=== PATIENT | female | born 1995 | race American Indian/Alaskan Native ===

== ENCOUNTER 2016-07-05 21:00 | Inpatient (IN) | payer MEDICAID ==
[2016-07-05] MEDS ORDERED: CERVIDIL VG ONE (22:46)
[2016-07-05] MEDS ORDERED: LACTATED RINGERS 1,000 ML ONE (22:48)
[2016-07-05 22:52] LABS: Hematocrit 35.7 % (30.3-42.9); Hemoglobin 11.9 gm/dl (10.1-14.3); Mean Corpuscular HGB Conc 34 % (30-34); Mean Corpuscular Hemoglobin 30 pg (28-32); Mean Corpuscular Volume 90 fl (79-97); Platelet Count 156 K/mm3 (140-440); Red Blood Count 3.95 M/mm3 (3.65-5.03); Red Cell Distribution Width 14.5 % (13.2-15.2); White Blood Count 6.3 K/mm3 (4.5-11.0)
[2016-07-05] MEDS ORDERED: SUBLIMAZE IV PRN (23:24)
[2016-07-05] MEDS ORDERED: MINERAL OIL PO PRN (23:24)
[2016-07-05] MEDS ORDERED: BRETHINE SUB-Q PRN (23:24)
[2016-07-05] MEDS ORDERED: POLYCILLIN/NS 2 GM/100 ML 2 GM/100 ML BAG IV ONE (23:24)
[2016-07-05] MEDS ORDERED: XYLOCAINE 2% INFILTRATI ONE (23:24)
[2016-07-05] MEDS ORDERED: ZOFRAN IV PRN (23:24)
[2016-07-05] MEDS ORDERED: BRETHINE IVP PRN (23:24)
[2016-07-05] MEDS ORDERED: ePHEDrine SULFATE IV PRN (23:24)
[2016-07-05] MEDS: LACTATED RINGERS 1,000 ML IV SCH (23:37)
[2016-07-05] MEDS ORDERED: PITOCin/NS 20 UNIT/1000ML DRIP 20 UNITS/1,000 ML BAG IV SCH (23:45)
--- NOTE | 2016-07-06 00:02 | History and Physical Report ---
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-pellet removed from the leg Abnormal PAP: negative ROOSEVELT Exposure: negative Infertility: negative Uterine Anomaly: negative Uterine Surgery (not C/S): negative Other Gynecologic Problems: negative Medical History Comments: neg Family Hx: DM HTN Social Hx: no e/t/d single Infection History Hx of STD: none Varicella/Chicken Pox Status: Immunized Genetic History Congenital Heart Defect: Mom: no Dad: no Lena Disease: Mom: no Dad: no Thalassemia Mom: no Dad: no Neural Tube Defect Mom: no Dad: no Down's Syndrome Mom: no Dad: no Norman-Sachs Mom: no Dad: no Sickle Cell Disease/Trait Mom: no Dad: no Hemophilia Mom: no Dad: no Muscular Dystrophy Mom: no Dad: no Cystic Fibrosis Mom: no Dad: no Veronica Chorea Mom: no Dad: no Mental Retardation Mom: no Dad: no Fragile X Mom: no Dad: no Other Genetic/Chromosomal Disorder Mom: yes Dad: no Comments: brother. Child w/other defect Mom: no Dad: no Enviromental Exposures Xray Exposure: no Medication, drug, or alcohol use since LMP: no Chemical/Other Exposure: no Exposure to Cat Liter: no Hx of Parvovirus (Fifth Disease): no Occupational Exposure to Children: none Active Medications (reviewed today): TERAZOL 3 0.8 % CREA (TERCONAZOLE) Insert 1 applicatorful intravaginally at bedtime for 3 consecutive days. FLAGYL 500 MG TABS (METRONIDAZOLE) 1 tab po bid PLUS 27-1 MG TABS ( VIT-FE FUMARATE-FA) 1 po q day 19 TABS ( VIT-DSS-FE FUM-FA TABS) 1 tab q d Current Allergies (reviewed today): No known allergies Laboratory Results Date/Time Collected: 01/20/2016 Routine Urinalysis Protein: Negative Glucose: Negative Urine HCG: positive PHYSICAL EXAM HEENT: PERRLA, normal conjunctiva, external nose and nasal mucosa normal, oropharynx clear Neck/Thyroid: supple, thyroid normal Skin no significant abnormal lesions or rashes Chest: respiratory effort normal, clear to auscultation Breasts: normal without skin changes or masses CV: regular, normal S1-S2, no murmur, no rub, no gallop Abdomen: normal bowel sounds, soft, nontender, no HSM Musculoskeletal: grossly normal ROM in joints, no joint tenderness or muscle weakness Neuro: grossly normal DTRs, sensation, strength, cranial nerves Extremities: no clubbing, cyanosis, or edema [employer] Exams Vulva/Vagina: No lesions, normal BUS, normal rugae Cervix: No lesions; no cervical motion tenderness Uterus: normal size and position, midline, mobile Adnexae: no masses or tenderness Rectovaginal: no masses or tenderness Past History - Obstetrical History Expected Date of Delivery: 06/25/16 Actual Gestation: 41 Week(s) 3 Day(s) : 1 Para: 0 Number of Living Children: 0 Medications and Allergies Allergies Allergy/AdvReac Type Severity Reaction Status Date / Time No Known Allergies Allergy Unverified 07/05/16 22:34 Active Meds: Active Medications Fentanyl (Sublimaze) 100 mcg IV Q2H PRN PRN Reason: Labor Pain Ampicillin Sodium (Polycillin/Ns 1 Gm/50 Ml) 1 gm in 50 mls @ 100 mls/hr IV Q4HR DEE DEE PRN Reason: Protocol Ampicillin Sodium (Polycillin/Ns 2 Gm/100 Ml) 2 gm in 100 mls @ 100 mls/hr IV ONCE ONE PRN Reason: Protocol Stop: 07/06/16 00:23 Lactated Ringer's (Lactated Ringers) 1,000 mls @ 125 mls/hr IV DIRECT DEE DEE Last Admin: 07/05/16 23:37 Dose: 125 mls/hr Oxytocin/Sodium Chloride (Pitocin/Ns 20 Unit/1000ml Drip) 20 units in 1,000 mls @ 125 mls/hr IV DIRECT DEE DEE Mineral Oil (Mineral Oil) 30 ml PO QHS PRN PRN Reason: Constipation Ondansetron HCl (Zofran) 4 mg IV Q8H PRN PRN Reason: Nausea And Vomiting - Vital Signs Vital signs: Vital Signs Pulse Pulse Ox 94 H 99 07/05/16 21:17 07/05/16 21:17 Temp Pulse Resp BP Pulse Ox 102 H 132/75 97 07/05/16 23:51 07/05/16 21:18 07/05/16 23:51 - Physical Exam Breasts: Positive: deferred Cardiovascular: Regular rate, Normal S1, Normal S2 Lungs: Positive: Normal air movement Abdomen: Positive: normal appearance, soft, normal bowel sounds. Negative: distention, tenderness Genitourinary (Female): Positive: normal perenium Vulva: both: normal Vagina: Positive: normal moisture. Negative: discharge Cervix: Negative: lesion, discharge Uterus: Positive: normal size, normal contour Adnexa: both: normal Anus/Rectum: Positive: normal perianal skin, heme negative. Negative: rectal mass, hemorrhoids Extremities: Positive: normal Deep Tendon Reflex Grade: Normal +2 - Obstetrical FHR: category 1 Uterine Contraction Monitor Mode: External Cervical Dilatation: 1 (per RN) Cervical Effacement Percentage: 60 station: -3 Uterine Contraction Pattern: Irregular Uterine Tone Measurement Phase: Resting Uterine Contraction Intensity: Mild Results Result Diagrams: 07/05/16 22:29 All other labs normal. Laboratory Data-Patient Name: BUTCH GREG Test Date Result Blood Type 01/26/2016 A Rh 01/26/2016 Positive Antibody Screen negative Rubella 01/26/2016 IMMUNE Serology (RPR) 01/26/2016 NR HBsAg 01/26/2016 Negative Hemoglobin 04/01/2016 11.1 Hematocrit 04/01/2016 33.7 Platelets 01/26/2016 207 [id number] Chlamydia DNA 01/22/2016 Negative GC DNA/Culture 01/22/2016 Urine Culture Group B Strep cult positive PAP HIV 01/26/2016 Negative AFP/Quad Screen 01/26/2016 Glucola Test 3hr GTT (Fasting) 06/01/2016 94 1 hr 06/01/2016 172 2 hr 06/01/2016 158 3 hr 06/01/2016 131 OPTIONAL LABS-Patient Name:BUTCH GREG Test Date Result Varicella Ab Sickle Cell 01/26/2016 Negative PPD Fibronectin Cystic Fibrosis Parvovirus TSH Free T4 Hepatitis C ALT AST Uric Acid Creatinine 24 hr Urine Protein DAJUAN Assessment and Plan 20yo @ 41 weeks here for IOL GBS + will start Ampicillin when in active labor Cervidil ordered All orders in EMR. Pt and partner made aware of induction process and that it may take 2+ days. All questions addressed.
[2016-07-06] MEDS ORDERED: AMBIEN PO PRN (00:11)
[2016-07-06] MEDS ORDERED: POLYCILLIN/NS 1 GM/50 ML 1 GM/50 ML BAG IV SCH (03:26)
[2016-07-06] MEDS ORDERED: ePHEDrine SULFATE ONE (03:54)
[2016-07-06] MEDS ORDERED: NACL 0.9% IR ONE (04:10)
[2016-07-06] MEDS ORDERED: WATER FOR IRRIG STERILE IR ONE (04:10)
[2016-07-06] MEDS ORDERED: POLYCILLIN/NS 2 GM/100 ML 2 GM/100 ML BAG IV ONE (04:11)
--- NOTE | 2016-07-06 04:30 | Progress Note ---
Assessment and Plan Received call from RN caring for pt @ 0300 to report deep variable decel slow to recover Cervidil removed Received second call @ 0330 of second deep decel Instructed to get epidural Called she is enroute. Terb if ctx are still regular. Now SVE 1-2 long -4 Dr Patel called section Explained situation to pt and partner Dr. Santos notified. Consents signed. 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-pellet removed from the leg Abnormal PAP: negative ROOSEVELT Exposure: negative Infertility: negative Uterine Anomaly: negative Uterine Surgery (not C/S): negative Other Gynecologic Problems: negative Medical History Comments: neg Family Hx: DM HTN Social Hx: no e/t/d single Infection History Hx of STD: none Varicella/Chicken Pox Status: Immunized Genetic History Congenital Heart Defect: Mom: no Dad: no Lena Disease: Mom: no Dad: no Thalassemia Mom: no Dad: no Neural Tube Defect Mom: no Dad: no Down's Syndrome Mom: no Dad: no Norman-Sachs Mom: no Dad: no Sickle Cell Disease/Trait Mom: no Dad: no Hemophilia Mom: no Dad: no Muscular Dystrophy Mom: no Dad: no Cystic Fibrosis Mom: no Dad: no Winn Chorea Mom: no Dad: no Mental Retardation Mom: no Dad: no Fragile X Mom: no Dad: no Other Genetic/Chromosomal Disorder Mom: yes Dad: no Comments: brother. Child w/other defect Mom: no Dad: no Enviromental Exposures Xray Exposure: no Medication, drug, or alcohol use since LMP: no Chemical/Other Exposure: no Exposure to Cat Liter: no Hx of Parvovirus (Fifth Disease): no Occupational Exposure to Children: none Active Medications (reviewed today): TERAZOL 3 0.8 % CREA (TERCONAZOLE) Insert 1 applicatorful intravaginally at bedtime for 3 consecutive days. FLAGYL 500 MG TABS (METRONIDAZOLE) 1 tab po bid PLUS 27-1 MG TABS ( VIT-FE FUMARATE-FA) 1 po q day 19 TABS ( VIT-DSS-FE FUM-FA TABS) 1 tab q d Current Allergies (reviewed today): No known allergies Laboratory Results Date/Time Collected: 01/20/2016 Routine Urinalysis Protein: Negative Glucose: Negative Urine HCG: positive PHYSICAL EXAM HEENT: PERRLA, normal conjunctiva, external nose and nasal mucosa normal, oropharynx clear Neck/Thyroid: supple, thyroid normal Skin no significant abnormal lesions or rashes Chest: respiratory effort normal, clear to auscultation Breasts: normal without skin changes or masses CV: regular, normal S1-S2, no murmur, no rub, no gallop Abdomen: normal bowel sounds, soft, nontender, no HSM Musculoskeletal: grossly normal ROM in joints, no joint tenderness or muscle weakness Neuro: grossly normal DTRs, sensation, strength, cranial nerves Extremities: no clubbing, cyanosis, or edema G[employer] P[employer] Exams Vulva/Vagina: No lesions, normal BUS, normal rugae Cervix: No lesions; no cervical motion tenderness Uterus: normal size and position, midline, mobile Adnexae: no masses or tenderness Rectovaginal: no masses or tenderness Patient reports: movement normal, contractions Objective - Vital Signs Vital Signs: Vital Signs - 12hr 07/05/16 07/05/16 07/05/16 21:17 21:18 21:23 Pulse Rate 94 H 85 90 Blood Pressure 132/75 O2 Sat by Pulse 99 98 Oximetry 07/05/16 07/05/16 07/05/16 21:28 21:33 21:38 Pulse Rate 90 92 H 95 H Blood Pressure O2 Sat by Pulse 97 97 98 Oximetry 07/05/16 07/05/16 07/05/16 21:43 21:48 21:53 Pulse Rate 98 H 94 H 104 H Blood Pressure O2 Sat by Pulse 98 98 98 Oximetry 07/05/16 07/05/16 07/05/16 21:58 22:03 22:46 Pulse Rate 91 H 89 87 Blood Pressure O2 Sat by Pulse 98 98 99 Oximetry 07/05/16 07/05/16 07/05/16 22:51 22:56 23:01 Pulse Rate 91 H 91 H 88 Blood Pressure O2 Sat by Pulse 98 98 98 Oximetry 07/05/16 07/05/16 07/05/16 23:06 23:11 23:16 Pulse Rate 96 H 89 95 H Blood Pressure O2 Sat by Pulse 98 98 97 Oximetry 07/05/16 07/05/16 07/05/16 23:18 23:21 23:26 Pulse Rate 70 103 H 89 Blood Pressure O2 Sat by Pulse 89 97 99 Oximetry 07/05/16 07/05/16 07/05/16 23:31 23:36 23:41 Pulse Rate 93 H 87 83 Blood Pressure O2 Sat by Pulse 98 98 98 Oximetry 07/05/16 07/05/16 07/05/16 23:46 23:51 23:56 Pulse Rate 84 102 H 110 H Blood Pressure O2 Sat by Pulse 98 97 98 Oximetry 07/06/16 07/06/16 07/06/16 00:01 00:06 00:11 Pulse Rate 116 H 102 H 119 H Blood Pressure O2 Sat by Pulse 98 97 98 Oximetry 07/06/16 07/06/16 07/06/16 00:16 00:21 00:26 Pulse Rate 91 H 94 H 91 H Blood Pressure O2 Sat by Pulse 97 97 97 Oximetry 07/06/16 07/06/16 07/06/16 00:30 00:36 00:41 Pulse Rate 96 H 94 H 88 Blood Pressure O2 Sat by Pulse 97 98 97 Oximetry 07/06/16 07/06/16 07/06/16 00:46 00:53 00:58 Pulse Rate 94 H 83 93 H Blood Pressure O2 Sat by Pulse 97 96 96 Oximetry 07/06/16 07/06/16 07/06/16 01:03 01:08 01:13 Pulse Rate 85 94 H 93 H Blood Pressure O2 Sat by Pulse 97 97 98 Oximetry 07/06/16 07/06/16 07/06/16 01:18 01:23 01:28 Pulse Rate 97 H 93 H 95 H Blood Pressure O2 Sat by Pulse 97 95 95 Oximetry 07/06/16 07/06/16 07/06/16 01:33 01:38 01:43 Pulse Rate 106 H 102 H 101 H Blood Pressure O2 Sat by Pulse 95 98 96 Oximetry 07/06/16 07/06/16 07/06/16 01:48 02:06 02:07 Pulse Rate 101 H 86 97 H Blood Pressure O2 Sat by Pulse 97 100 93 Oximetry 07/06/16 07/06/1617 03:02 03:07 03:12 Pulse Rate 87 84 77 Blood Pressure O2 Sat by Pulse 98 100 100 Oximetry 07/06/16 07/06/16 07/06/16 03:17 03:22 03:27 Pulse Rate 78 79 82 Blood Pressure O2 Sat by Pulse 100 100 100 Oximetry 07/06/16 07/06/16 07/06/16 03:32 03:38 03:43 Pulse Rate 82 89 93 H Blood Pressure O2 Sat by Pulse 100 97 100 Oximetry 07/06/16 07/06/16 07/06/16 03:48 03:53 03:57 Pulse Rate 82 81 87 Blood Pressure O2 Sat by Pulse 100 99 100 Oximetry 07/06/16 07/06/16 07/06/16 04:03 04:08 04:13 Pulse Rate 90 91 H 92 H Blood Pressure O2 Sat by Pulse 99 98 99 Oximetry 07/06/16 07/06/16 07/06/16 04:17 04:18 04:19 Pulse Rate 91 H 84 89 Blood Pressure 127/76 126/78 O2 Sat by Pulse 99 Oximetry 07/06/16 07/06/16 07/06/16 04:20 04:21 04:22 Pulse Rate 67 111 H 93 H Blood Pressure 137/87 O2 Sat by Pulse 63 L 100 Oximetry - Exam Breasts: deferred Cardiovascular: Regular rate Lungs: Normal air movement Abdomen: Present: normal appearance Uterus: Present: normal FHR: category 2 Uterine Contraction Pattern: Regular Uterine Contraction Intensity: Moderate Extremities: edema Deep Tendon Reflex Grade: Normal +2 - Labs Labs: Laboratory Results - last 24 hr 07/05/16 07/05/16 22:29 22:29 WBC 6.3 RBC 3.95 Hgb 11.9 Hct 35.7 MCV 90 MCH 30 MCHC 34 RDW 14.5 Plt Count 156 Blood Type A POSITIVE Antibody Screen TNR ÁLVARO Antibody Screen Negative
[2016-07-06] MEDS ORDERED: ePHEDrine SULFATE IV PRN (04:35)
[2016-07-06] MEDS ORDERED: NARCAN 2 MG/2 ML IV PRN (04:35)
--- NOTE | 2016-07-06 04:35 | Anesthesia Consultation ---
Anesthesia Consult and Med Hx Date of service: 07/06/16 - Airway Anesthetic Teeth Evaluation: Good ROM Head & Neck: Adequate Mental/Hyoid Distance: Adequate Mallampati Class: Class II Intubation Access Assessment: Good - Pulmonary Exam CTA: Yes - Cardiac Exam Cardiac Exam: No Murmur - Pre-Operative Health Status ASA Pre-Surgery Classification: ASA2 Proposed Anesthetic Plan: Epidural - Pulmonary Hx Asthma: No COPD: No Hx Pneumonia: No - Cardiovascular System Hx Hypertension: No - Central Nervous System Hx Seizures: No Hx Psychiatric Problems: No - Endocrine Hx Renal Disease: No Hx End Stage Renal Disease: No Hx Hypothyroidism: No Hx Hyperthyroidism: No - Hematic Hx Anemia: No Hx Sickle Cell Disease: No - Other Systems Hx Alcohol Use: No
[2016-07-06] MEDS ORDERED: PHENERGAN PR PRN (04:37)
[2016-07-06] MEDS ORDERED: NARCAN 0.4 MG/1 ML IV PRN ×2 (04:37→07:30)
[2016-07-06] MEDS ORDERED: DILAUDID IV PRN ×2 (04:37)
[2016-07-06] MEDS ORDERED: ZOFRAN IV PRN ×2 (04:37→07:30)
[2016-07-06] MEDS ORDERED: PHENERGAN PO PRN (04:37)
[2016-07-06] MEDS ORDERED: REGLAN ONE (04:48)
[2016-07-06] MEDS ORDERED: BICITRA ONE ×2 (04:48→05:02)
[2016-07-06] MEDS ORDERED: PEPCID IV ONE (04:50)
[2016-07-06] MEDS ORDERED: SODIUM CHLORIDE FLUSH SYRINGE 10 ML IV NR (05:00)
[2016-07-06] MEDS ORDERED: fentaNYL-BUPIV 2 MCG/ML-0.125% 200 MCG/100 ML BAG EPIDURAL SCH ×2 (05:00)
[2016-07-06] MEDS ORDERED: ANCEF ONE (05:15)
--- NOTE | 2016-07-06 05:15 | Event Note ---
Date: 07/06/16 Arrived at hospital at 4:20 after stat call to come to hospital for severe decelerations following placement of cervidil cervical ripening agent in post dates (EDC 06/25/16) G1 induction. Pt is 40 wk + 3d with 4/20 u/s = EFW 8#5oz. She failed a 1 hr glucose but her 3 hr was only one abnormal value. A+, Im, GBS pos. Review of strip reveals at least 3 profound and prolonged late decelerations into the sixties with very slow recovery. The cervidil was removed for the second one near 0300 and there waas a repeat episode at 0338 more than 30 min post removal,; there are several other episodes that in retrospect, are difficult to interpret due to poor pick-up of heart rate. There does not appear to have been hyperstimulation. She has now received an epidural. The patient"s contractions have stopped now. Discussed with patient and SO at the bedside. Cervix is very unfavorable and she is remote from delivery. section is indicated at this time for intolerance of labor and distress with several late decelerations with contractions--they expressed understanding.
[2016-07-06] MEDS ORDERED: TORADOL ONE (05:29)
[2016-07-06] MEDS ORDERED: XYLOCAINE MPF 2% ONE ×4 (05:29)
[2016-07-06] MEDS ORDERED: MORPHINE ONE ×2 (05:33)
[2016-07-06 06:04] LABS: ISTAT Base Excess -3; ISTAT HCO3 23.9; ISTAT PCO2 48.8 (35-45); ISTAT PH 7.299 (7.35-7.45); ISTAT PO2 23 (80-105); ISTAT SO2 34; ISTAT TCO2 25
[2016-07-06 06:05] LABS: ISTAT Base Excess -4; ISTAT PCO2 42.3 (35-45); ISTAT PH 7.325 (7.35-7.45); ISTAT PO2 24 (80-105); ISTAT SO2 38; ISTAT TCO2 23
--- NOTE | 2016-07-06 06:17 | Operative Report ---
Operative Report Operative Report: Date of Procedure: 07/06/2016 Procedure name(s): Primary transverse low segment section Pre-operative diagnosis: Primigravida postdates at 40 weeks and 3 days , intolerance of cervical ripening agent, very unfavorable cervix and large Post-operative diagnosis: Same, plus thick meconium and nuchal shoulder cord, otherwise normal tubes, uterus and ovaries. Uterus somewhat boggy off and on during the case responding to uterine massage, Methergine was given postoperatively Surgeon: Yasemin Patel M.D. Data Processing Consultant: Guillermina Gross CNM Anesthesia: Epidural EBL: 800 : 3995 g male (8 lbs. 13 oz.), Apgars 8 and 9. Thick meconium Time of : 0537 Findings Normal tubes, uterus and ovaries, thick meconium shoulder/nuchal cord. Cord gases done and placenta sent to pathology, no evidence of abruption Procedure The patient was taken to the operating room and after adequate anesthesia was obtained she was placed in the supine position in left lateral tilt. Sequential compression devices were in place on both lower extremities and a Katz catheter was placed in a sterile fashion. The abdomen was then prepped and draped in the usual fashion. Surgical time-out was done with the entire OR team attentive. A Pfannenstiel incision was made with a scalpel and sharp dissection was carried down through all layers of the abdomen in the usual fashion. The abdomen was entered bluntly and the lower uterine segment was identified. The presenting part was palpated and a bladder flap was created with the Metzenbaum scissors. The scalpel was used to incise the uterus in a transverse fashion and this incision was extended bluntly with finger traction and the membranes were ruptured and there was thick, old meconium. My hand was inserted into the uterus. The vertex was grasped, rotated to an OA presentation and delivered with a combination of traction and fundal pressure. The cord was clamped and cut and a viable infant was suctioned and handed off to the attending NICU staff and was a 8 lbs. 13 oz. male with Apgars of 8 and 9. The placenta was removed manually, the interior of the uterus was cleansed with moist lap packs and the uterus was exteriorized. The uterine incision was closed with a double imbricating layer of 0 Vicryl suture in a running fashion. Hemostasis was adequate and the uterus was returned to the abdomen. Uterus was well contracted . Initially but subsequently became boggy and this responded to uterine massage. The abdomen was then closed in layers: the rectus muscles were closed with several [id number] sutures of 0 Vicryl, the fascia was closed with running sutures of 0 Vicryl starting at both side corners in turn and tied together in the midline. The subcutaneous tissue was irrigated and then closed with several interrupted sutures of 3-0 Vicryl and the skin was closed with a running subcuticular suture of 4-0 Vicryl. Sponge and Lap count correct X 3, estimated blood loss was 800 mL and the Katz was draining clear urine. The patient tolerated the procedure well and was discharged to PACU in good condition.
[2016-07-06] MEDS ORDERED: METHERGINE IM ONE ×2 (06:26→06:30)
[2016-07-06] MEDS ORDERED: MYLICON PO PRN (07:30)
[2016-07-06] MEDS ORDERED: MORPHINE IV PRN ×2 (07:30)
[2016-07-06] MEDS ORDERED: SODIUM CHLORIDE FLUSH SYRINGE 10 ML IV PRN (07:30)
[2016-07-06] MEDS ORDERED: PITOCin/NS 20 UNIT/1000ML DRIP 20 UNITS/1,000 ML BAG IV SCH (07:30)
[2016-07-06] MEDS ORDERED: MILK OF MAGNESIA PO PRN (07:30)
[2016-07-06] MEDS ORDERED: TUCKS PAD TP PRN (07:30)
[2016-07-06] MEDS ORDERED: TORADOL IV PRN (07:30)
[2016-07-06] MEDS ORDERED: TYLENOL PO PRN (07:30)
[2016-07-06] MEDS ORDERED: D5LR 1,000 ML IV SCH (07:30)
[2016-07-06] MEDS ORDERED: LANSINOH TP PRN (07:30)
--- NOTE | 2016-07-06 09:04 | Admit Criteria Form ---
Admission Criteria Documentation: OBSTETRIC AND GYNECOLOGIC DISEASE GRG Clinical Indications for Admission to Inpatient Care (Place 'X' for any and all applicable criteria): Hospital admission is needed for appropriate care of the patient because of 1 or more of the following (1)(2)(3): [ ]I. Hemodynamic instability, as indicated by 1 or more of the following (1)( 2)(3)(4)(5): [ ]a) Vital signs or other findings not as expected for chronic patient condition or baseline [ ]b) Instability indicated by 1 or more of the following: [ ]i) Hypotension [ ]ii) Symptomatic tachycardia unresponsive to treatment (eg, analgesia, fluids, sedation as indicated) [ ]iii) Inadequate perfusion indicated by 1 or more of the following: [ ]A. Lactic acidosis (greater than 2 mmol/ L) [ ]B. New abnormal capillary refill ( greater than 3 seconds) [ ]C. Reduced urine output [ ]D. New altered mental status [ ]iv) Orthostatic vital sign changes unresponsive to treatment (eg, fluids) [ ]v) Multiple IV fluid boluses required to maintain adequate blood pressure or perfusion [ ]vi) IV inotropic or vasopressor medication required to maintain adequate blood pressure or perfusion [ ]II. Obstetric infection requiring hospitalization indicated by 1 or more of the following(13)(14): [ ]a) Chorioamnionitis [ ]b) Endometritis (except mild endometritis) [ ]c) Pelvic abscess [ ]d) Peritonitis [ ]e) Septic pelvic thrombophlebitis [ ]III. Amniotic fluid or pulmonary embolism(4)(5)(6) [ ]IV. Suspected peritonitis or ectopic requiring monitoring beyond scope of 24 hours or observation care(7)(8) [ ]V. compromise requiring hospitalization indicated by ALL of the following(9)(10): [ ]a) compromise indicated by 1 or more of the following(11): [ ]i) Abnormal heart rate monitoring [ ]ii) Abnormal contraction stress test [ ]iii) Abnormal biophysical profile [ ]iv) Abnormal Doppler flow in vessels (ie, Doppler velocimetry) (12) [ ]b) Persistence of compromise indicators during evaluation and observation monitoring [ ]. Ovarian hyperstimulation syndrome requiring hospitalization[A] indicated by ALL of the following(15): [ ]a) Recent ovarian stimulation with gonadotropins, or evidence on ultrasound of spontaneous emergence of large number of ovarian follicles [ ]b) Evidence of severe ovarian hyperstimulation syndrome indicated by 1 or more of the following: [ ]i) Abdominal pain unresponsive to oral therapy [ ]ii) Acute respiratory distress syndrome [ ]iii) Electrolyte imbalance ( eg, hyponatremia, hyperkalemia) [ ]iv) Elevated liver enzymes [ ]v) Evidence of thromboembolism [ ]vi) Hemoconcentration (hematocrit greater than 45 % (0.45)) [ ]vii) Inability to maintain oral intake adequate to prevent hemoconcentration [ ]viii) Marked hypotension from baseline (eg, SBP 20 mmHg below patients usual pressure) [ ]ix) Oliguria or anuria [ ]x) Ovarian torsion [ ]xi) Pleural or pericardial effusion on x-ray or echocardiogram [ ]xii) Rapid increase in serum creatinine to greater than 1.2 mg/dL (106 micromoles/L) or creatinine clearance less than 50 mL/min/1.73m2 (0.84 mL/ sec/1.73m2) [ ]xiii) Ruptured ovarian cyst with hemorrhage [ ]xiv) Severe abdominal pain or peritoneal signs [ ]xv) Tense ascites that cannot be managed with paracentesis in outpatient setting [ ]VII.Pelvic infection requiring hospitalization indicated by 1 or more of the following (16): [ ]a) Outpatient treatment has failed or is not appropriate (eg, inpatient monitoring required) [ ]b) Pelvic abscess [ ]c) Surgical emergency cannot be excluded (eg, rigid abdomen) [ ]d) Vomiting precluding outpatient and observation care management VIII. loss complications requiring inpatient medical treatment indicated by 1 or more of the following (4)(7)(9): [ ]a) Fever [ ]b) Peritonitis [ ]c) Sepsis [ ]d) Severe abdominal pain [ ]IX. or patient requiring monitoring for severe heart failure, pulmonary disease, or other comorbid condition (eg, peripartum cardiomyopathy) (4)(17) [ ]X. patient with rupture of membranes requiring hospitalization indicated by ANY ONE of the following: [ ]a) Chorioamnionitis, cloudy amniotic fluid, or other evidence of infection [ ]b) compromise or other need for monitoring (11) [ ]c) Gestation longer than 23 weeks and ANY ONE of the following: [ ]i) Abnormal (noncephalic) presentation [ ]ii) Inadequate home environment (eg, home too far from hospital, unable to rapidly return to hospital) [ ]d) Temperature greater than 100.4 degrees F (38 degrees C)( oral) [ ]e) Threatened labor requiring monitoring beyond scope (eg, over 24 hours) of observation Care [ ] XI. complications, including severe lacerations, infections, or retained placenta (19) [ ] XII.Uterine bleeding with high-risk features indicated by ANY ONE of the following (4): [ ]a) Active major hemorrhage (eg, hemorrhage) [ ]b) Coagulopathy with active bleeding [ ]c) Gestational trophoblastic disease (eg, molar ) (20 ) [ ]d) (longer than 23 weeks) and ANY ONE of the following: [ ]i) Pain [ ]ii) Placental abruption, known or suspected [ ]iii) Placenta accrete, known or suspected(21) [ ]iv) Placenta previa, known or suspected [ ]v) Vasa previa [ ]e) Severe anemia [ X]XIII. Obstetric or Gynecologic Disease, condition or symptom for which ANY ONE of the following: [X ]a) Emergency and observation care have failed or are not considered appropriate ( Also use General Criteria: Observation Care Criteria as appropriate) [ ]b) Presence of a General Admission Criteria or Pediatric General Admission Criteria The original [facility] content created by [facility] has been revised. The portions of the content which have been revised are identified through the use of italic text or in bold, and [facility] has neither reviewed nor approved the modified material.All other unmodified content is copyright [facility]. Please see references footnoted in the original [facility] edition 2016 Admission Criteria Met: Yes
[2016-07-06 09:25] LABS: Hematocrit 34.7 % (30.3-42.9); Hemoglobin 11.5 gm/dl (10.1-14.3); Mean Corpuscular HGB Conc 33 % (30-34); Mean Corpuscular Hemoglobin 30 pg (28-32); Mean Corpuscular Volume 90 fl (79-97); Platelet Count 135 K/mm3 (140-440); Red Blood Count 3.86 M/mm3 (3.65-5.03); Red Cell Distribution Width 14.3 % (13.2-15.2); White Blood Count 13.4 K/mm3 (4.5-11.0)
[2016-07-06] MEDS ORDERED: BENADRYL IV NR (09:27)
[2016-07-06] MEDS ORDERED: LACTATED RINGERS 1,000 ML IV SCH ×2 (09:30→11:00)
[2016-07-06] MEDS ORDERED: ANCEF/NS 1 GM/50 ML 1 GM/50 ML BAG IV SCH ×2 (10:00→23:00)
[2016-07-06] MEDS: LACTATED RINGERS 1,000 ML IV SCH (10:42)
--- NOTE | 2016-07-06 10:54 | Event Note ---
Date: 07/06/16 report from Shmuel Carbajal with patient in L&D recovery after C/s that UO was < 30mL over the last hour, 450mL was emptied on immediate arrival to recovery. Urine now dark [place], small amount in tube. Urometer placed and order for LR 500mL bolus given. She was further observed. Urine increased to ~20mL/hr now clear yellow. VSS throughout recovery period, H/H stable. No evidence of bleeding, decreased UO appears to be d/t dehydration, order for another 500mL LR bolus given then 125mL/hr. Patient was informed of plan of care, she alert and appropriately responsive, civil design specialist with patient now to assist with breast feeding.
[2016-07-06] MEDS ORDERED: AFRIN NS PRN (13:30)
[2016-07-06] MEDS: BENADRYL IV PRN ×2 (15:31→23:00)
[2016-07-06] MEDS ORDERED: NUBAIN IV ONE (19:00)
[2016-07-06] MEDS ORDERED: PREPARATION H PR PRN (20:27)
[2016-07-06 22:08] LABS: Hemoglobin 9.8 gm/dl (10.1-14.3)
[2016-07-07] MEDS ORDERED: BOOSTRIX IM ONE (06:00)
--- NOTE | 2016-07-07 06:24 | Progress Note ---
Assessment and Plan - Patient Problems (1) delivery delivered Onset Date: ~07/06/16 Current Visit: Yes Status: Acute Plan to address problem: Pt w/o complaint VSS FF below umb Lochia small Dressing D&I Pt removed her on IV. H&H 12/10 drop related to blood loss from section Pt is asymptomatic Doing well s/p c/s P: continue pathway Adv diet and activity as tolerated. 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): leg surgery-pellet removed from the leg Abnormal PAP: negative [place] Exposure: negative Infertility: negative Uterine Anomaly: negative Uterine Surgery (not C/S): negative Other Gynecologic Problems: negative Medical History Comments: neg Family Hx: DM HTN Social Hx: no e/t/d single Infection History Hx of STD: none Varicella/Chicken Pox Status: Immunized Genetic History Congenital Heart Defect: Mom: no Dad: no Lena Disease: Mom: no Dad: no Thalassemia Mom: no Dad: no Neural Tube Defect Mom: no Dad: no Down's Syndrome Mom: no Dad: no Norman-Sachs Mom: no Dad: no Sickle Cell Disease/Trait Mom: no Dad: no Hemophilia Mom: no Dad: no Muscular Dystrophy Mom: no Dad: no Cystic Fibrosis Mom: no Dad: no [place] Chorea Mom: no Dad: no Mental Retardation Mom: no Dad: no Fragile X Mom: no Dad: no Other Genetic/Chromosomal Disorder Mom: yes Dad: no Comments: brother. Child w/other defect Mom: no Dad: no Enviromental Exposures Xray Exposure: no Medication, drug, or alcohol use since LMP: no Chemical/Other Exposure: no Exposure to Cat Liter: no Hx of Parvovirus (Fifth Disease): no Occupational Exposure to Children: none Active Medications (reviewed today): TERAZOL 3 0.8 % CREA (TERCONAZOLE) Insert 1 applicatorful intravaginally at bedtime for 3 consecutive days. FLAGYL 500 MG TABS (METRONIDAZOLE) 1 tab po bid PLUS 27-1 MG TABS ( VIT-FE FUMARATE-FA) 1 po q day 19 TABS ( VIT-DSS-FE FUM-FA TABS) 1 tab q d Current Allergies (reviewed today): No known allergies Laboratory Results Date/Time Collected: 01/20/2016 Routine Urinalysis Protein: Negative Glucose: Negative Urine HCG: positive PHYSICAL EXAM HEENT: PERRLA, normal conjunctiva, external nose and nasal mucosa normal, oropharynx clear Neck/Thyroid: supple, thyroid normal Skin no significant abnormal lesions or rashes Chest: respiratory effort normal, clear to auscultation Breasts: normal without skin changes or masses CV: regular, normal S1-S2, no murmur, no rub, no gallop Abdomen: normal bowel sounds, soft, nontender, no HSM Musculoskeletal: grossly normal ROM in joints, no joint tenderness or muscle weakness Neuro: grossly normal DTRs, sensation, strength, cranial nerves Extremities: no clubbing, cyanosis, or edema 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 Vulva/Vagina: No lesions, normal BUS, normal rugae Cervix: No lesions; no cervical motion tenderness Uterus: normal size and position, midline, mobile Adnexae: no masses or tenderness Rectovaginal: no masses or tenderness Patient reports: appetite normal, voiding normally, pain well controlled, ambulating normally [place]: doing well Objective - Vital Signs Latest vital signs: Vital Signs Temp Pulse Pulse Resp BP BP Pulse Ox 07/07/16 00:25 98.3 F 87 18 120/73 07/06/16 20:00 98.1 F 93 H 18 124/70 07/06/16 15:49 98.6 F 76 20 120/84 07/06/16 10:50 98.4 F 76 14 118/74 07/06/16 10:45 20 98 07/06/16 10:20 98 H 20 131/76 07/06/16 09:51 82 20 133/91 07/06/16 09:36 82 131/57 07/06/16 09:10 87 131/57 97 07/06/16 08:45 88 18 137/83 98 07/06/16 08:25 98.8 F 88 20 133/74 97 07/06/16 07:55 90 18 131/80 98 07/06/16 07:40 81 18 129/76 98 07/06/16 07:25 82 18 123/80 97 07/06/16 07:10 82 18 122/76 97 07/06/16 06:55 72 16 122/72 99 07/06/16 06:50 78 22 118/72 98 07/06/16 06:46 87 22 116/75 98 07/06/16 06:40 97.8 F 78 19 114/66 100 Intake and Output 07/06/16 07/06/16 07/07/16 14:59 22:59 06:59 Intake Total 5225 360 120 Output Total 130 2100 400 Balance 3591 -3561 -280 Intake: IV 5225 Lactated Ringers 1,000 ml 1000 @ 125 mls/hr IV DIRECT DEE DEE Rx#:[id number] Lactated Ringers 1,000 ml 150 @ 125 mls/hr IV DIRECT DEE DEE Rx#:[id number] Lactated Ringers 1,000 ml 1000 @ 500 mls/hr IV DIRECT DEE DEE Rx#:[id number] Left Forearm 125 PITOCin/NS 20 UNIT/1000ML 1000 DRIP 20 units In 1,000 ml @ 125 mls/hr IV DIRECT DEE DEE Rx#:[id number] Oral 360 120 Output: Urine 130 2100 400 Indwelling Catheter 70 1150 Void 950 400 Other: Total, Intake Amount 120 120 Total, Output Amount 70 450 400 # Voids Void 1 1 - Exam Breasts: Present: normal Cardiovascular: Present: Regular rate Lungs: Present: Normal air movement Abdomen: Present: normal appearance, soft, normal bowel sounds Uterus: Present: normal, firm Extremities: Present: normal Incision: Present: normal, dry, intact, dressed - Labs Labs: Abnormal lab results 07/06/16 07/06/16 Range/Units 09:00 21:29 WBC 13.4 H (4.5-11.0) K/mm3 Hgb 9.8 L (10.1-14.3) gm/dl Hct 29.0 L (30.3-42.9) % Plt Count 135 L (140-440) K/mm3
--- NOTE | 2016-07-07 09:42 | Progress Note ---
Subjective Date of service: 07/07/16 Principal diagnosis: Day #1 s/p section Interval history: 1st POD after Patient is in the bed, comfortable. Pain is well controlled with pain meds. Ambulated well. No residual neurological deficit. No anesthesia complications Objective - Constitutional Vitals: Vital Signs - 12hr 07/07/16 07/07/16 07/07/16 00:25 04:50 08:25 Temperature 98.3 F 99.0 F 98 F Pulse Rate [ 87 97 H 80 Right Radial] Respiratory 18 18 20 Rate Blood Pressure 120/73 118/59 130/72 [Right Arm] - Labs CBC & Chem 7: 07/06/16 21:29 Labs: Abnormal lab results 07/06/16 Range/Units 21:29 Hgb 9.8 L (10.1-14.3) gm/dl Hct 29.0 L (30.3-42.9) %
[2016-07-07] MEDS: PERCOCET 5/325 PO PRN ×2 (09:57→18:54)
[2016-07-07] MEDS: MOTRIN PO PRN ×2 (09:58→18:55)
[2016-07-07] MEDS ORDERED: FLUARIX QUAD 2016-2017(36 MOS+) IM ONE (12:00)
[2016-07-08] MEDS: PERCOCET 5/325 PO PRN ×3 (01:58→15:55)
[2016-07-08] MEDS: MOTRIN PO PRN (01:58)
--- NOTE | 2016-07-08 07:19 | Discharge Summary ---
Providers - Providers Date of Admission: 07/05/16 21:00 Date of discharge: 07/08/16 (pt req d/c) Attending physician: TREMAINE MULLER Primary care physician: TREMAINE MULLER Hospitalization Reason for admission: induction of labor Delivery: Procedure: primary low transverse Episiotomy: none Laceration: none Incision: normal, dry, intact complications: none Discharge diagnosis: IUP at term delivered [place] baby: male Hospital course: intolerance to labor uncomplicated section Pt w/o complaint VSS FF below umb Lochia scant Incision D&I H&H 9.8/29.0 drop r/ t blood loss from surgery. Pt asymptomatic Doing well s/p c/s P: d/c today with instructions Call for circ in office one week Condition at discharge: Good Disposition: DISCHARGED TO HOME OR SELFCARE - Discharge Diagnoses (1) delivery delivered Status: Acute Comment: rto 1 week postop and circ of son Plan - Provider Discharge Summary Activity: routine, no sex for 6 weeks, no heavy lifting 4 weeks, no strenuous exercise Diet: routine Instructions: routine Additional instructions: [] Smoking cessation referral if applicable(refer to patient education folder for contact #) [] Refer to [facility] Booklet Call your doctor immediately for: * Fever > 100.5 * Heavy vaginal bleeding ( >1 pad per hour) * Severe persistent headache * Shortness of breath * Reddened, hot, painful area to leg or breast * Drainage or odor from incision. * Keep incision clean and dry at all times and follow doctor's instructions regarding bathing/showering - Follow up plan Follow up: TREMAINE MULLER MD [Primary Care Provider] - 7 Days (Congratulations! Please call [phone] to schedule your son's circumcision in 1 week and your postoperative visit in 1 week. Bring the EMLA cream with you to his visit. Take medication as prescribed. Call with concerns.)
[2016-07-08] MEDS ORDERED: DEPO-PROVERA (CONTRACEPTION) IM NR (07:30)
[2016-07-08 18:29] VITALS: BP 114/64
== END 2016-07-08 17:00 | disposition home or self-care (01) | DRG 765 ==
LOC: LD 21:00 → OB 07-06 11:02
PROVIDERS: ADMIT Obstetrics & Gynecology; ATTEND Obstetrics & Gynecology
PROC: 10D00Z1 Extraction of Products of Conception, Low, Open Approach (ICD-10-PCS; principal; 2016-07-05)
PROC: 3E0P7GC Introduction of Other Therapeutic Substance into Female Reproductive, Via Natural or Artificial Opening (ICD-10-PCS; 2016-07-05)
PROC: 3E0234Z Introduction of Serum, Toxoid and Vaccine into Muscle, Percutaneous Approach (ICD-10-PCS; 2016-07-05)
DX: O48.0 Post-term pregnancy (principal); R71.0 Precipitous drop in hematocrit; O99.824 Streptococcus B carrier state complicating childbirth; O69.81X0 Labor and delivery complicated by cord around neck, without compression, not applicable or unspecified; O76 Abnormality in fetal heart rate and rhythm complicating labor and delivery; O77.0 Labor and delivery complicated by meconium in amniotic fluid; Z37.0 Single live birth; Z3A.41 41 weeks gestation of pregnancy
CPT/HCPCS: 36415; 59200; 82803; 85014; 85018; 85027; 86592; 86850; 86900; 86901; 88307; 90471; 90715; 99211; A6250; G0463; J0290; J0690; J1170; J1200; J1885; J2210; J2270; J2300; J2405; J2590; J2765; J7120